=== PATIENT | male | born 1995 | race Caucasian/White ===

== ENCOUNTER 2022-05-06 23:01 | Emergency (ER) | payer OTHER, SELFPAY ==
[2022-05-06 23:21] VITALS: BP 117/57; PULSE 99; RESP 18; TEMP 36.6; O2SAT 98; BMI 25.8
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
--- NOTE | 2022-05-07 00:15 | PC.NURSE ---
Review discharge instructions with patient. Pt verbalized understanding. Notified RN Yanira.
== END 2022-05-07 00:16 | disposition home or self-care (01) ==
PROVIDERS: Emergency Provider Emergency Medicine
DX: T22.10XA Burn of first degree of shoulder and upper limb, except wrist and hand, unspecified site, initial encounter (principal); T31.0 Burns involving less than 10% of body surface; W22.11XA Striking against or struck by driver side automobile airbag, initial encounter; Y93.9 Activity, unspecified; Y92.410 Unspecified street and highway as the place of occurrence of the external cause; Y99.9 Unspecified external cause status
CPT/HCPCS: 99282

== ENCOUNTER 2023-06-16 13:10 | Emergency (ER) | payer OTHER, BC, SELFPAY ==
--- NOTE | ~2023-06-16 | CT_ITS ---
EXAMINATION: CT HEAD WITHOUT CONTRAST CLINICAL INFORMATION: Trauma to head COMPARISON: None available. TECHNIQUE: Contiguous axial imaging was performed from the skull base to vertex without intravenous administration of contrast. This CT examination was performed using dose optimization techniques as appropriate, variously including the following: *Automated exposure control *Adjustment of mA and/or kV according to patient size (this includes techniques or standardized protocols for targeted exams where dose is matched to indication/reason for exam; i.e. extremities or head) *Use of iterative reconstruction technique DLP: 695 mGy-cm FINDINGS: No intra or extra-axial fluid collection or hemorrhage, mass, or mass effect. Calvarium intact. CT/CT head/brain wo IV con IMPRESSION: No acute intracranial pathology.
[2023-06-16 14:06] VITALS: BP 117/73; PULSE 58; RESP 16; TEMP 36.9; O2SAT 100; BMI 30.5
--- NOTE | 2023-06-16 14:06 | ED.HEATRA ---
HPI - Head Injury General Chief complaint: Head Injury Stated complaint: bumped head at work Time Seen by Provider: 06/16/23 16:34 Source: patient and RN notes reviewed Mode of arrival: ambulatory Limitations: no limitations History of Present Illness HPI Narrative: This is a [id number], with no known medical problems, presenting to the emergency department with complaints of head pain s/p head strike on airplane today. Pt states that he while he was working he stood up and accidentally bumped his head on an airplane part today. He denies loss of consciousness. He states that the strike caused him to fall to his knees given the pain. He states some mild pain to the top of his head, worsening with palpation. Denies any changes in his vision, nausea, vomiting or diarrhea. Denies weakness, numbness or tingling. He is not on anticoagulants. No other complaints or concerns at this time. MD Complaint: head injury and head pain Onset (ago): hour(s) Mechanism of Injury: work related injury Place: work Loss of Consciousness: no Location of injury: parietal Severity: moderate Quality: aching Radiation: none Other Injuries: none Associated symptoms: denies other symptoms Related Data Home Medications Medication Instructions Recorded Confirmed cyclobenzaprine 10 mg tablet 10 mg PO Q8H PRN muscle spasm 08/14/22 naproxen 500 mg tablet 500 mg PO BID PRN moderate pain 08/14/22 Allergies Allergy/AdvReac Type Severity Reaction Status Date / Time No Known Allergies Allergy Verified 06/16/23 14:06 Review of Systems Review of Systems: Yes all other systems are reviewed and are negative Constitutional: Constitutional: Reports as per [facility] Social History Social History Smoked in Last 30 Days: Yes Use of substances other than those prescribed or required for medical reasons: No Advance Directives: No Advance Directives Information Provided: No Physical Exam Vital Signs: Vital Signs: Last Vital Signs Temp 98 F 06/16/23 17:39 Pulse 60 06/16/23 17:39 Resp 18 06/16/23 17:39 BP 119/72 06/16/23 17:39 Pulse Ox 98 06/16/23 17:39 O2 Del Method Room Air 06/16/23 17:39 BMI result Body Mass Index 30.5 Const: General: cooperative, comfortable and no acute distress Orientation/consciousness: patient oriented x3 Limitations: no limitations HEENT: Other: [place] of head with 2cm abrasion noted, no warmth, or induration. No bony step off or crepitus. No laceration noted. No active bleeding Head: Yes normal to inspection, Yes normocephalic and Yes atraumatic Ears: hearing grossly normal bilaterally General nose exam: Normal external nose present Face and sinus: Yes normal facial exam Mouth: Normal oral and palatal mucosa present, oropharynx normal and moist mucous membranes Throat: Yes posterior oropharynx normal Eyes: General: appearance normal, both eyes and all related structures Eyelids: Yes eyelids normal Conjunctivae: conjunctivae normal Sclerae: sclerae normal Pupils: Equal, round and reactive pupils present EOM: EOMs intact bilaterally Neck: Neck: Yes normal visual inspection, Yes full ROM and Yes no lymphadenopathy Lymphatic: no lymphadenopathy noted Chest: Chest palpation & inspection: normal inspection of the chest Resp: Effort & Inspection: normal respiratory effort and able to speak in complete sentences Auscultation: clear to auscultation bilaterally, no crackles, no rales, no rhonchi and no wheezes Cardio: Rate: regular rate Rhythm: regular rhythm Heart sounds: S1 normal heart sound present and S2 normal heart sound present GI: Inspection: Yes normal to inspection Skin: General skin exam: no rashes or lesions noted Trauma: no lacerations or abrasions Wounds: no wounds Neuro: General: patient oriented x3 and moves all extremities Cranial nerves: Yes Equal, round and reactive pupils present Extrem: General: Yes normal to inspection Right upper extremity: normal to inspection Left upper extremity: normal to inspection Right lower extremity: normal to inspection Left lower extremity: normal to inspection Course Course Course Narrative: RME: 28yo M w/no sig PMHx c/o continued SOLIZ s/p hitting head on plane while at work around 9am. Admits fell to ground. Denies taking AC, N/V, lightheadedness/dizziness Head CT ordered Full HPI, ROS and PE to be performed by primary ED provider. Reevaluation(s) Reevaluation #1: CT head obtained with no acute findings. Discussed results with patient. Advised mental and physical rest for the next several days and to f/u with PCP as needed. Pt understands and agrees with plan. Given return precautions. Stable for d/c. Medical Decision Making Medical Decision Making MDM Narrative: 28 y/o M presenting to the ER for evaluation of head strike which occurred today. There was no LOC, and pt only reporting mild pain to his head. No changes in vision, dizziness, weakness, numbness/tingling. On arrival, vital signs within normal limits. Pt nontoxic appearing and fully neurologically intact. He is not on blood thinners. Given headstrike, will obtain CT for further evaluation to rule out any ICH, intracranial mass. DDX ICH, intracranial mass, closed head injury, concussion Plan: CT head Differential Diagnosis Differential Diagnoses: The differential diagnosis associated with the presentation includes see above Admission/Observation Consideration of admission/observation: Escalation of care including admission/observation considered Radiology Impression Discussion of test interpretation with radiology: I have reviewed the radiologist's reading. Radiologist Impression: EXAMINATION: CT HEAD WITHOUT CONTRAST CLINICAL INFORMATION: Trauma to head COMPARISON: None available. TECHNIQUE: Contiguous axial imaging was performed from the skull base to vertex without intravenous administration of contrast. This CT examination was performed using dose optimization techniques as appropriate, variously including the following: *Automated exposure control *Adjustment of mA and/or kV according to patient size (this includes techniques or standardized protocols for targeted exams where dose is matched to indication/reason for exam; i.e. extremities or head) *Use of iterative reconstruction technique DLP: 695 mGy-cm FINDINGS: No intra or extra-axial fluid collection or hemorrhage, mass, or mass effect. Calvarium intact. CT/CT head/brain wo IV con IMPRESSION: No acute intracranial pathology. Dictated By: Don Vallecillo MD Discharge Plan Discharge Clinical Impression: Closed head injury Patient Disposition: Home, Self-Care Instructions: Head Injury (ED) Additional Instructions: Your head scan does not show any abnormalities. Please take ibuprofen or Tylenol as needed for pain. You may ice your head as needed for pain relief. Cognitive rest can provide you with increased healing time, avoid prolonged screen time or reading. Physical and mental rest can help facilitate your recovery time. If any new or worsening symptoms occur including but not limited to worsening headaches, nausea, vision changes, weakness, numbness or tingling, please return for re-evaluation. Prescriptions: No Action cyclobenzaprine 10 mg tablet 10 mg PO Q8H PRN (Reason: muscle spasm) naproxen 500 mg tablet 500 mg PO BID PRN (Reason: moderate pain) Interventions: ED Discharge Assessment Last Done: 06/16/23 17:45 Discharge Date/Time: 06/16/23 17:45
[2023-06-16 17:39] VITALS: BP 119/72; PULSE 60; RESP 18; TEMP 36.6; O2SAT 98
--- NOTE | 2023-06-16 17:46 | PC.NURSE ---
head pain. no neuro sx. talks well w/o distress. walking well. airway intact
== END 2023-06-16 17:45 | disposition home or self-care (01) ==
PROVIDERS: Emergency Provider Emergency Medicine
DX: S09.90XA Unspecified injury of head, initial encounter (principal); R51.9 Headache, unspecified; Y29.XXXA Contact with blunt object, undetermined intent, initial encounter; Y93.9 Activity, unspecified; Y92.9 Unspecified place or not applicable; Y99.0 Civilian activity done for income or pay; Z79.899 Other long term (current) drug therapy
CPT/HCPCS: 70450; 99284

== ENCOUNTER 2024-12-06 12:17 | Emergency (ER) | payer BC, OTHER, SELFPAY ==
[2024-12-06 12:21] VITALS: BP 117/70; PULSE 77; RESP 19; TEMP 36.6; O2SAT 99; BMI 29.8
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
[2024-12-06 12:44] VITALS: BP 117/70; PULSE 77; RESP 19; TEMP 36.6; O2SAT 99
== END 2024-12-06 12:46 | disposition home or self-care (01) ==
PROVIDERS: Emergency Provider Emergency Medicine
DX: S00.83XA Contusion of other part of head, initial encounter (principal); W22.8XXA Striking against or struck by other objects, initial encounter; Y93.89 Activity, other specified; Y92.139 Unspecified place military base as the place of occurrence of the external cause; Y99.0 Civilian activity done for income or pay
CPT/HCPCS: 99282